=== PATIENT | male | born 2000 | race Two or more races ===

== ENCOUNTER 2018-01-07 22:41 | Emergency (ER) | payer OTHER ==
[~2018-01-07] VITALS: Ht 152.4 cm; Wt 78.5 kg
[2018-01-08] MEDS ORDERED: ZOFRAN4 MG PO (04:18)
== END 2018-01-08 04:30 | disposition home or self-care (01) ==
LOC: ER 22:41
DX: R11.11 Vomiting without nausea (principal); F10.129 Alcohol abuse with intoxication, unspecified